=== PATIENT | female | born 1965 | race Caucasian/White ===

== ENCOUNTER 2016-08-04 05:33 | Day surgery (SDC) | payer OTHER ==
[2016-08-04] MEDS ORDERED: TRANSDERM-SCOP ONE (06:13)
[2016-08-04] MEDS ORDERED: NS 1,000 ML ONE (06:13)
[2016-08-04] MEDS ORDERED: MYLICON DROPS (DOSE) ONE (06:58)
[2016-08-04] MEDS ORDERED: MYLICON DROPS (DOSE) MISC ONE (08:00)
[2016-08-04] MEDS ORDERED: VERSED ONE (08:42)
[2016-08-04] MEDS ORDERED: DIPRIVAN 1% ONE (08:42)
[2016-08-04] MEDS ORDERED: XYLOCAINE-MPF 2% ONE (08:48)
[2016-08-04 09:15] VITALS: BP 114/69
--- NOTE | 2016-08-04 11:31 | OPERATIVE NOTE ---
PROCEDURE DATE: 08/04/2016 REFERRING PHYSICIAN: Rory Nielsen MD INDICATIONS FOR PROCEDURE: 1. Dysphagia. 2. GERD. PROCEDURE PERFORMED: Esophagogastroduodenoscopy with biopsy. CONSENT: Informed consent was obtained from the patient prior to the procedure. The risks, benefits, and alternatives were discussed. MEDICATIONS: 1. The patient received monitored anesthesia care. 2. A scopolamine patch was placed prior to the endoscopy and sedation to prevent nausea and vomiting associated with previous anesthesia. PERFORMING PHYSICIAN: Theresa Hawk MD ASSISTANTS: 1. ST Flip 2. Jacqueline Long RN. 3. Deonna Goel CRNA. 4. Curtis Aranda MD (Anesthesia). COMPLICATIONS: There were no complications. ESTIMATED BLOOD LOSS: Less than 1 mL. SPECIMENS REMOVED: 1. Duodenal biopsy. 2. Gastric biopsy. FINDINGS AND PROCEDURE: After sedation was achieved, the upper endoscope was inserted to the 2nd portion of the duodenum. The hypopharynx appeared endoscopically normal. The tubular esophagus appeared normal to the distal esophagus. At 39 cm and extending to the GE junction, which was measured at 40 cm, there was erosive esophagitis, consistent with grade B esophagitis. There was a hiatal hernia from 40-45 cm. In the gastric lumen, there was erosive gastritis. On retroflexed view, there were a few small fundic gland polyps that remained intact. On forward view, there was a small superficial antral ulcer. In addition, there was a pyloric channel ulcer with a superficial whitish base and no stigmata of bleeding. The pylorus was inflamed but we were able to traverse and insert the scope into the small bowel. In the duodenal bulb and the 2nd portion of the duodenum, there was erythema and erosive changes consistent with duodenitis. The 3rd portion of the duodenum appeared endoscopically normal. After biopsies were taken from the duodenum and the stomach, the lumen was decompressed and the scope was removed without incident. IMPRESSION: 1. Grade B erosive esophagitis. 2. Hiatal hernia. 3. Erosive gastritis. 4. Fundic gland polyps. 5. Antral ulcer. 6. Pyloric channel ulcer. 7. Duodenitis. RECOMMENDATIONS: 1. Await biopsy results. 2. Begin omeprazole 40 mg, 1 p.o. daily. 3. Begin Carafate 1 g p.o. 4 times a day for 12 weeks and then stop. 4. We will proceed with colonoscopy as previously scheduled.
--- NOTE | 2016-08-04 11:36 | OPERATIVE NOTE ---
PROCEDURE DATE: 08/04/2016 REFERRING PHYSICIAN: Rory Nielsen MD INDICATION FOR PROCEDURE: History of colon polyps. PROCEDURE PERFORMED: Colonoscopy with cold biopsy polypectomy. CONSENT: Informed consent was obtained from the patient prior to the procedure. The risks, benefits, and alternatives were discussed. MEDICATIONS: The patient received: 1. Monitored anesthesia care. 2. Scopolamine patch to reduce nausea and vomiting post anesthesia. PERFORMING PHYSICIAN: Theresa Hawk MD. ASSISTANTS: 1. ST. Flip 2. Jacqueline Long RN. 3. Deonna Goel CRNA. 4. Curtis Aranda MD (Anesthesia). COMPLICATIONS: There were no complications. ESTIMATED BLOOD LOSS: Less than 1 mL. SPECIMEN REMOVED: Rectal polyps. CECAL INTUBATION TIME: 10 minutes due to a tortuous colon. WITHDRAWAL TIME: 12 minutes. PREP QUALITY: Good. FINDINGS AND PROCEDURE: After sedation was achieved, the pediatric colonoscope was inserted to the cecum. The terminal ileum, ileocecal valve, and appendiceal orifice appeared endoscopically normal. Although there was grossly normal colonic mucosa, there were scattered AVMs throughout the colon. There was no stigmata of bleeding. In the sigmoid colon, there were rare diverticula with no evidence of diverticulitis. In the upper rectum, there were grade 1 internal hemorrhoids. There were 6 small rectal polyps that were less than 5 mm in size. They were removed by cold biopsy polypectomy. On retroflexed view, there were medium external hemorrhoids. In addition, there was decreased sphincter tone on both digital exam and during the retroflexed view where the scope prolapsed out of the rectum. After the exam was complete, the lumen was decompressed and the scope was removed without incident. IMPRESSION: 1. Small rectal polyps. 2. Rare sigmoid diverticulosis. 3. Grade 2 internal hemorrhoids. 4. Medium external hemorrhoids. 5. Decreased sphincter tone. RECOMMENDATIONS: 1. Await biopsy results. 2. Colonoscopy in 5 years (2021). 3. Consider evaluation of the sphincter if the patient has clinical symptoms. Currently, she is symptom-free. 4. We will have the patient return to clinic in 4-6 weeks to assess interval progress.
== END 2016-08-04 09:30 | disposition home or self-care (01) ==
LOC: ENDO 05:33
PROVIDERS: ATTEND Internal Medicine Gastroenterology
DX: K62.1 Rectal polyp (principal); K29.50 Unspecified chronic gastritis without bleeding; K21.9 Gastro-esophageal reflux disease without esophagitis; R13.10 Dysphagia, unspecified; K42.9 Umbilical hernia without obstruction or gangrene; K25.9 Gastric ulcer, unspecified as acute or chronic, without hemorrhage or perforation
CPT/HCPCS: 88305; 88312; J2250; J7030